=== PATIENT | female | born 1950 | race Caucasian/White ===

== ENCOUNTER 2017-12-10 18:04 | Emergency (ER) | payer MEDICARE, MEDICAID ==
[~2017-12-10] VITALS: Ht 5283.9 cm; Wt 53.0 kg
[~2017-12-10 18:04] MED LIST: PHEN-824 PO
[2017-12-10] MEDS ORDERED: NITR100C6 PO (19:04)
[2017-12-10 19:37] LABS: CLARITY,URINE SLIGHTLY CLOUDY (Clear); COLOR,URINE ORANGE (Yellow)
[2017-12-10 19:44] VITALS: BP 151/80
[2017-12-10 19:45] LABS: UA COLLECTION TYPE CLN CATCH MIDSTREAM
[2017-12-10 19:54] LABS: RBC,URINE 0-2 /HPF (0-2)
[2017-12-10 19:55] LABS: BACTERIA,URINE 2+ /HPF (Neg); CAL OXALATE CRYSTALS 3+ /HPF (NEGATIVE); SQUAMOUS EPITHELIAL CELL,UR FEW /LPF (FEW)
== END 2017-12-10 19:45 | disposition home or self-care (01) ==
LOC: ER 18:05
DX: N39.0 Urinary tract infection, site not specified (principal); Z88.2 Allergy status to sulfonamides
CPT/HCPCS: 81001; 87077; 87088; 87186; 99284